=== PATIENT | male | born 2000 | race Hispanic/Latino ===

== ENCOUNTER 2021-06-18 16:06 | Emergency (ER) | payer OTHER ==
[~2021-06-18] VITALS: Ht 177.8 cm; Wt 100.0 kg
--- NOTE | 2021-06-18 16:43 | REP ---
INDICATION: injury, swelling. COMPARISON: None. TECHNIQUE: Four views FINDINGS: There is a small avulsion fracture arising from the distal fibular tip. The mortise is intact. There is soft tissue swelling. IMPRESSION: Fracture as described above. <Electronically signed by Rodolfo Mathew > 06/18/21 1640
[2021-06-18 17:39] VITALS: BP 115/68
== END 2021-06-18 17:40 | disposition home or self-care (01) ==
LOC: M ED 16:06
DX: S82.831A Other fracture of upper and lower end of right fibula, initial encounter for closed fracture (principal); X50.9XXA Other and unspecified overexertion or strenuous movements or postures, initial encounter; Y92.009 Unspecified place in unspecified non-institutional (private) residence as the place of occurrence of the external cause; Y93.89 Activity, other specified; Y99.8 Other external cause status; Z87.828 Personal history of other (healed) physical injury and trauma

== ENCOUNTER 2021-06-27 18:15 | Emergency (ER) | payer OTHER ==
[~2021-06-27] VITALS: Ht 175.3 cm; Wt 100.0 kg
[2021-06-27 18:15] VITALS: BP 150/67
[2021-06-27] MEDS ORDERED: IBUP-1114 PO (18:46)
--- OUTSIDE RECORDS SUMMARY | 2021-06-27 22:30 | CCD ---
Author Author [facility] Address Unknown Phone Unavailable Support Name Relationship Address Phone [facility] Next Of Kin [address] [place] [address] Unavailable MERYL CONDE Next Of Kin Unknown Re-disclosure Warning The records that you are about to access may contain information from federally-assisted alcohol or drug abuse programs. If such information is present, then the following federally mandated warning applies: This information has been disclosed to you from records protected by federal confidentiality rules (42 CFR part 2). The federal rules prohibit you from making any further disclosure of this information unless further disclosure is expressly permitted by the written consent of the person to whom it pertains or as otherwise permitted by 42 CFR part 2. A general authorization for the release of medical or other information is NOT sufficient for this purpose. The Federal rules restrict any use of the information to criminally investigate or prosecute any alcohol or drug abuse patient.The records that you are about to access may contain highly sensitive health information, the redisclosure of which is protected by Article 27-F of the [facility] Public Health law. If you continue you may have access to information: Regarding HIV / AIDS; Provided by facilities licensed or operated by the [facility] Office of Mental Health; or Provided by the [facility] Office for People With Developmental Disabilities. If such information is present, then the following [facility] mandated warning applies: This information has been disclosed to you from confidential records which are protected by state law. State law prohibits you from making any further disclosure of this information without the specific written consent of the person to whom it pertains, or as otherwise permitted by law. Any unauthorized further disclosure in violation of state law may result in a fine or half-way sentence or both. A general authorization for the release of medical or other information is NOT sufficient authorization for further disc losure. Medications No Information Insurance Providers Payer name Policy type / Coverage type Policy ID Covered alliance party ID Covered alliance party's relationship to augustine Policy Augustine Plan Information [facility] ACTIVE DUTY [id number] SP [id number] [facility] [employer] - O/P [id number] 18 [id number] Problems, Conditions, and Diagnoses No Information Surgeries/Procedures No Information Results No Information Social History No Information
--- OUTSIDE RECORDS SUMMARY | 2021-06-27 23:02 | CCD ---
Author Author [facility] Address Unknown Phone Unavailable Support Name Relationship Address Phone [facility] Next Of Kin [address] [place] [address] Unavailable MERYL CONDE Next Of Kin Unknown [...] is protected by Article 27-F of the [facility] Public Health law. If you continue you may have access to information: Regarding HIV / AIDS; Provided by facilities licensed or operated by the [facility] Office of Mental Health; or Provided by the [facility] Office for People With Developmental Disabilities. If such information is present, then the following [facility] mandated warning applies: This information has been [...] law may result in a fine or care home sentence or both. A general authorization for the release of medical or other information is NOT sufficient authorization for further disc losure. Medications No Information Insurance Providers Payer name Policy type / Coverage type Policy ID Covered republican ID Covered republican's relationship to augustine Policy Augustine Plan Information [facility] ACTIVE D[employer]Y [id number] SP [id number] [facility] [employer] - O/P [id number] 18 [id number] Problems, Conditions, and Diagnoses No Information Surgeries/Procedures No Information Results No Information Social History No Information
--- NOTE | 2021-06-27 23:18 | REPVR ---
PROCEDURE INFORMATION: Exam: XR Right Tibia and Fibula Exam date and time: 06/27/21 (10:03pm) Age: 20 years old Clinical indication: Lateral right leg pain. Possible fracture. TECHNIQUE: Imaging protocol: XR Right tibia and fibula Views: 2 views COMPARISON: Right ankle plain films of 06/18/21 FINDINGS: Bones/joints: No acute fracture nor dislocation. Perhaps old small chip fracture at the inferior tip of the right fibula. Soft tissues: Unremarkable. IMPRESSION: No acute findings. Electronically signed by: Mae Avila On 06/27/2021 23:18:20 PM
--- NOTE | 2021-06-27 23:21 | REPVR ---
PROCEDURE INFORMATION: Exam: US Duplex Right Lower Extremity Veins, Limited Exam date and time: 06/27/21 (10:32pm) Age: 20 years old Clinical indication: Right lower leg edema. Possible DVT. TECHNIQUE: Imaging protocol: Real-time Duplex ultrasound of the Right Lower Extremity with 2-D chadwick scale, color Doppler flow and spectral waveform analysis with image documentation. Limited examination was focused on the right lower extremity veins. COMPARISON: Right tibia / fibula plain films of 06/27/21 FINDINGS: Right deep veins: Unremarkable. The common femoral, femoral, proximal profunda femoral, popliteal, and calf veins are patent without thrombus. Normal Doppler waveforms. Normal compressibility and/or augmentation response. Right superficial veins: Unremarkable. Saphenofemoral junction is patent without thrombus. Soft tissues: Unremarkable. IMPRESSION: No evidence of deep vein thrombosis. Electronically signed by: Mae Avila On 06/27/2021 23:20:36 PM
== END 2021-06-27 23:53 | disposition home or self-care (01) ==
LOC: M ED 18:15
DX: S82.831A Other fracture of upper and lower end of right fibula, initial encounter for closed fracture (principal); S93.401A Sprain of unspecified ligament of right ankle, initial encounter; X50.1XXA Overexertion from prolonged static or awkward postures, initial encounter; Y92.9 Unspecified place or not applicable; Y93.9 Activity, unspecified; Y99.9 Unspecified external cause status; R22.41 Localized swelling, mass and lump, right lower limb